=== PATIENT | female | born 1995 | race African-American/Black ===

== ENCOUNTER 2020-12-23 17:00 | Emergency (ER) | payer MEDICAID ==
[~2020-12-23] VITALS: Ht 157.5 cm; Wt 62.0 kg
[2020-12-23] MEDS ORDERED: ALBUTEROL (0.5%) 2.5MG/0.5ML NEB HHN ONE (18:15)
[2020-12-23] MEDS ORDERED: PREDNISONE 20MG TABLET PO ONE (18:15)
[2020-12-23] MEDS: AZITHROMYCIN 500 MG TABLET PO ONE ×2 (18:29→18:35)
[2020-12-23] MEDS ORDERED: AZIT250T12 MT (19:19)
[2020-12-23] MEDS ORDERED: P50 MT (19:19)
[2020-12-23 19:50] VITALS: BP 97/56
== END 2020-12-23 20:00 | disposition home or self-care (01) ==
LOC: ER 17:00
DX: J45.901 Unspecified asthma with (acute) exacerbation (principal); F17.200 Nicotine dependence, unspecified, uncomplicated; Z71.6 Tobacco abuse counseling; Z20.822 Contact with and (suspected) exposure to COVID-19
CPT/HCPCS: 71045; 99284; 99406; C9803; J7512; U0003; Z7610